=== PATIENT | male | born 1995 | race Two or more races ===

== ENCOUNTER 2019-09-28 09:04 | Emergency (ER) | payer MEDICARE, OTHER ==
[~2019-09-28] VITALS: Ht 165.1 cm; Wt 81.6 kg
--- NOTE | 2019-09-28 09:40 | Emergency Room Report ---
History of Present Illness General Chief Complaint: General Complaint Source: Family Member Present Illness HPI Disclaimer: Please note that this report is being documented using [employer] technology. This can lead to erroneous entry secondary to incorrect interpretation by the dictating instrument. 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 Family stated they were texted by the mold yard supervisor office to come in for an arterial blood gas. The patient is changing pharmacy and changing home oxygen settings and need a baseline ABG before the new prescriptions can be filled. Otherwise parents deny any recent URI symptoms, fever, vomiting, diarrhea or other changes in his health. Allergies: Coded Allergies: No Known Allergies (Unverified , 09/28/19) Nursing Documentation-PMH Hx Cardiac Problems: No - Cerebral Palsy, Paraplegia Hx Asthma: Yes Hx Seizures: Yes Review of Systems All Other Systems: negative except mentioned in HPI Physical Exam Vital Signs Date Time Temp Pulse Resp B/P (MAP) Pulse Ox O2 Delivery O2 Flow Rate FiO2 09/28/19 09:12 98.1 100 18 131/74 (93) 95 Room Air General: Awake, nonverbal, no acute distress HEENT: NC/AT. EOMI. nonverbal Cardiovascular: RRR. S1 and S2 normal. No murmur appreciated Resp: Normal work of breathing. Coarse upper respiratory sounds reverberating to lower lungs. No cough, wheezing or crackles appreciated Skin: Intact. No abrasions, laceration or rash over the exposed skin MSK: Normal tone and bulk. Moving all extremities. Neuro: Awake, nonverbal at baseline Medical Decision Making Diagnostic Impression: Primary Impression: Laboratory test ER Course 24-year-old male with history of cerebral palsy coming in at the request of his mold yard supervisor for baseline ABG level on room air prior to changing oxygen settings at home. The patient appears comfortable in no acute distress. He is afebrile. Family denies any changes in his health otherwise. ABG obtained and is within normal limits. Results printed for family and sent to his mold yard supervisor. Patient will be discharged. Can follow-up with his mold yard supervisor and return with new or worsening symptoms. Laboratory Tests Test 09/28/19 09:40 Arterial Blood pH 7.448 (7.350-7.450) Arterial Blood Partial Pressure CO2 40.6 mmHg (35.0-45.0) Arterial Blood Partial Pressure O2 76.0 mmHg (75.0-100.0) Arterial Blood HCO3 27.5 mmol/L (22.0-26.0) H Arterial Blood Oxygen Saturation 96.0 % (95-100) Arterial Blood Base Excess 3.2 (-2-2) H Jose Francisco Test Positive Last Vital Signs Date Time Temp Pulse Resp B/P (MAP) Pulse Ox O2 Delivery O2 Flow Rate FiO2 09/28/19 09:12 98.1 100 18 131/74 (93) 95 Room Air Disposition: HOME, SELF-CARE Condition: Stable Arnie Swan MD Sep 28, 2019 09:40
[2019-09-28 09:44] VITALS: BP 121/72
[2019-09-28 10:15] VITALS: BP 134/70
== END 2019-09-28 10:15 | disposition home or self-care (01) ==
LOC: EMR 09:40
DX: Z00.00 Encounter for general adult medical examination without abnormal findings (principal); G80.9 Cerebral palsy, unspecified; G40.909 Epilepsy, unspecified, not intractable, without status epilepticus; G82.20 Paraplegia, unspecified
CPT/HCPCS: 36600; 82803; 99283